=== PATIENT | female | born 1965 | race Caucasian/White ===

== ENCOUNTER → 2024-08-05 17:43 | Outpatient (REF) | payer OTHER, SELFPAY | LOC: WDC 17:43 | PROVIDERS: ATTENDING PHYSICIAN Obstetrics & Gynecology Gynecology; FAMILY PHYSICIAN Internal Medicine | DX: Z12.39 Encounter for other screening for malignant neoplasm of breast (principal); Z12.31 Encounter for screening mammogram for malignant neoplasm of breast | CPT/HCPCS: 77063; 77067 ==

== ENCOUNTER 2025-01-22 23:17 | Emergency (ER) | payer OTHER, SELFPAY ==
[2025-01-22 23:30] VITALS: BP 114/75
--- NOTE | 2025-01-22 23:58 | ED.GENMED ---
History of Present Illness
General
Chief Complaint: Musculo-Skeletal Complaint
Time Seen by Provider: 01/22/25 23:33
History of Present Illness
History of Present Illness:
59-year-old female without significant past medical history presenting for right hand and wrist pain after a fall. Patient was dancing at a wedding prior to arrival and fell onto an outstretched hand with subsequent pain and swelling. Denies head
injury or loss of consciousness. She is not on any blood thinners. Denies numbness or tingling to the extremity. Denies any additional injuries or acute medical complaints
Past History
Past History
ED Past Medical History: None
Social History
Personal:
Living: with family
Phy Exam
Physical Exam
Physical Exam:
General: Well-appearing, no clinical signs of dehydration, nontoxic and in no acute distress
HEENT: protecting airway
Neck: appears supple
CV: Normal heart rate, regular rhythm, no evidence of cyanosis
Resp: No accessory muscle use, no increased work of breathing
Abd: no distension
Extremities: Swelling to the dorsum of the right hand with generalized pain. Range of motion of the wrist is intact. Distal sensation and pulses intact. No erythema or warmth
Neuro: alert, no focal neurologic deficit
: deferred
Rectal: deferred
Psych: Normal affect
Skin: Intact
Course
Orders/Labs/Results
Orders:
Orders
01/22/25 23:57
Ketorolac [Toradol] 15 mg IM NOW STA
01/23/25 00:00
CR Hand - Right Min 3 Views Urgent
Reason For Exam: injury pain
CR Wrist - Right Min 3 Views Urgent
Reason For Exam: injury and pain
Vital Signs
Initial and Last Documented VS:
Initial Vital Signs
Pulse Resp Pulse Ox
60 18 98
01/22/25 23:19 01/22/25 23:19 01/22/25 23:19
Last Documented Vital Signs
Temp Pulse Resp BP Pulse Ox
98.2 F 60 18 114/75 98
01/22/25 23:25 01/22/25 23:19 01/22/25 23:19 01/22/25 23:30 01/23/25 00:00
MDM/Problems Addressed
MDM/Problems Addressed:
59-year-old female presenting for right hand and wrist pain after a fall. Vital signs are normal.
On exam patient resting comfortably, no acute distress or discomfort. Generalized swelling to the dorsum of the right hand with concern for possible fracture or sprain. Range of motion of the wrist is grossly intact. No obvious deformity. No
infectious findings. No neurovascular compromise. Plan for x-ray imaging. Toradol ministered for pain. Patient otherwise without any signs of head trauma or additional acute injuries.
00:45 -x-ray shows a possible distal third metacarpal fracture, however suspect likely shadowing on x-ray imaging. There is a fracture to the distal radius, nondisplaced. Will place in a sugar-tong splint. Otherwise feel stable for discharge with
outpatient orthopedic follow-up and pain control.
*Pulse Oximetry
SaO2: 98
Oxygen Mode of Delivery: Room air
Patient hypoxic: no
*Critical Care Note
Total Time (30-74mins, 75-104mins- exclusive of procedures): Not Applicable
ED Attending Note
-
Portions of this chart may have been created with voice recognition software.� Occasional wrong word or��sound alike� substitutions may have occurred due to the inherent limitations of voice recognition software.
Discharge Plan
Departure
Referrals:
Sharona Burch PA-C [Family Provider, Internal Medicine]
Interventions
Interventions:
*Risk Screen - Suicide Last Done: 01/22/25 23:19
*General Assessment Last Done: 01/22/25 23:19
*Neglect/Abuse Screening Last Done: 01/22/25 23:19
*ED- Fall Risk Assessment Last Done: 01/22/25 23:19
*ED COVID-19 Vaccine History Last Done: 01/22/25 23:19
ED-Musculoskeletal Assessment Last Done: 01/23/25 00:24
Discharge Date and Time
Print Language: [id number]
[2025-01-23] MEDS: TORADOL 15 MG IM (00:19)
[2025-01-23 01:35] VITALS: BP 114/71
[2025-01-23] MEDS: PERCOCET 5/325 1 TABLET PO (01:38)
== END 2025-01-23 01:51 | disposition home or self-care (01) ==
LOC: EMR 23:17
PROVIDERS: EMERGENCY PHYSICIAN Student in an Organized Health Care Education/Training Program; FAMILY PHYSICIAN Physician Assistant
DX: S52.591A Other fractures of lower end of right radius, initial encounter for closed fracture (principal); W18.39XA Other fall on same level, initial encounter; Y93.41 Activity, dancing
CPT/HCPCS: 29125; 96372; 99284; 73110; 73130